=== PATIENT | male | born 1990 | race Caucasian/White ===

== ENCOUNTER 2017-07-27 17:45 | Emergency (ER) | payer OTHER ==
[~2017-07-27] VITALS: Ht 185.4 cm; Wt 65.5 kg
[~2017-07-27 17:45] MED LIST: D ME PO; PROP40TA5 PO
[2017-07-27 18:07] VITALS: BP 114/75; PULSE 74; RESP 14; O2SAT 98
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
[2017-07-27 20:45] VITALS: BP 113/72; PULSE 65; RESP 18; O2SAT 99
== END 2017-07-27 20:46 | disposition home or self-care (01) ==
LOC: SED 17:45
DX: S16.1XXA Strain of muscle, fascia and tendon at neck level, initial encounter (principal); S29.019A Strain of muscle and tendon of unspecified wall of thorax, initial encounter; S39.012A Strain of muscle, fascia and tendon of lower back, initial encounter; V43.52XA Car driver injured in collision with other type car in traffic accident, initial encounter; Y92.410 Unspecified street and highway as the place of occurrence of the external cause; Y93.9 Activity, unspecified; Y99.8 Other external cause status; F17.200 Nicotine dependence, unspecified, uncomplicated
CPT/HCPCS: 96372; 99283; J1885